=== PATIENT | female | born 1980 | race Caucasian/White ===

== ENCOUNTER 2021-02-17 08:54 | Outpatient (CLI) | payer OTHER, SELFPAY ==
--- NOTE | 2021-02-17 09:00 | MM_ITS ---
WS: [id number] BILATERAL DIGITAL DIAGNOSTIC MAMMOGRAM MAMMOGRAPHY WITH CAD CLINICAL INFORMATION: N63.0 - Unspecified lump in unspecified breast TECHNIQUE: Bilateral CC, MLO, and ML views. FINDINGS: The breasts are composed of heterogeneous fibroglandular density, which can limit the detection of sm all underlying mass lesions. Palpable marker is bilateral breasts. Multiple ovoid lesions deep to the palpable markers suspicious for breast cyst. Ultrasound is pending. ULTRASOUND BREAST BILATERAL TECHNIQUE: Ultrasound bilateral breast focused area of concern. CLINICAL INFORMATION: N63.0 - Unspecified lump in unspecified breast COMPARISON: None. FINDINGS: Ultrasound bilateral breasts. Multiple bilateral breast cysts are seen bilaterally. Most of these are simple cysts with a benign appearance. A few with internal debris. Approximately 5 cysts right breas t and 2 cysts left breast. RIGHT: Right breast cystic lesion at the areola 3:00 position measuring 8.9 x 7.8 x 6.5 mm with internal derek ris. Additional hypoechoic lesion likely complex cyst at the 10:00 position near the areola measuring 4.4 x 5.2 x 3.9 mm Recommend 6 month follow-up of these 2 complex lesions.. LEFT: Lobulated complex cystic lesion with internal debris at the 10:00 position at the areola measuring 11 x 10 x 6 mm. Recommend 6 month follow-up. Largest cyst right breast measures 1.8 x 1.4 x 1.2 cm at the 8:00 position. Largest cyst left breast measures 2.3 x 2.3 x 1.2 cm at the 2:00 position. MM/[place] [id number] IMPRESSION: BI-RADS: 3-Probably Benign FOLLOW UP: 6 Month Follow-up RECOMMEND 6 MONTH FOLLOW-UP BILATERAL BREAST ULTRASOUND WITH ATTENTION TO THE Valarie WOOD DESCRIBED COMPLEX CYSTIC LESIONS.
--- NOTE | 2021-02-17 09:30 | US_ITS ---
WS: [id number] BILATERAL DIGITAL DIAGNOSTIC MAMMOGRAM MAMMOGRAPHY WITH CAD CLINICAL INFORMATION: N63.0 - Unspecified lump in unspecified breast TECHNIQUE: Bilateral CC, MLO, and ML views. FINDINGS: The breasts are composed of heterogeneous fibroglandular density, which can limit the detection of sm all underlying mass lesions. Palpable marker is bilateral breasts. Multiple ovoid lesions deep to the palpable markers suspicious for breast cyst. Ultrasound is pending. ULTRASOUND BREAST BILATERAL TECHNIQUE: Ultrasound bilateral breast focused area of concern. CLINICAL INFORMATION: N63.0 - Unspecified lump in unspecified breast COMPARISON: None. FINDINGS: Ultrasound bilateral breasts. Multiple bilateral breast cysts are seen bilaterally. Most of these are simple cysts with a benign appearance. A few with internal debris. Approximately 5 cysts right breas t and 2 cysts left breast. RIGHT: Right breast cystic lesion at the areola 3:00 position measuring 8.9 x 7.8 x 6.5 mm with internal derek ris. Additional hypoechoic lesion likely complex cyst at the 10:00 position near the areola measuring 4.4 x 5.2 x 3.9 mm Recommend 6 month follow-up of these 2 complex lesions.. LEFT: Lobulated complex cystic lesion with internal debris at the 10:00 position at the areola measuring 11 x 10 x 6 mm. Recommend 6 month follow-up. Largest cyst right breast measures 1.8 x 1.4 x 1.2 cm at the 8:00 position. Largest cyst left breast measures 2.3 x 2.3 x 1.2 cm at the 2:00 position. US/US breast BI limited* [id number] IMPRESSION: BI-RADS: 3-Probably Benign FOLLOW UP: 6 Month Follow-up RECOMMEND 6 MONTH FOLLOW-UP BILATERAL BREAST ULTRASOUND WITH ATTENTION TO THE A [place] DESCRIBED COMPLEX CYSTIC LESIONS.
== END 2021-02-17 08:55 | disposition home or self-care (01) ==
LOC: RADSHAW 08:56
PROVIDERS: PCP Nurse Practitioner Family; Visit Provider Nurse Practitioner Women's Health
DX: N63.15 Unspecified lump in the right breast, overlapping quadrants (principal); N63.22 Unspecified lump in the left breast, upper inner quadrant
CPT/HCPCS: 76642; 77066

== ENCOUNTER 2021-08-23 12:46 | Outpatient (CLI) | payer OTHER, SELFPAY ==
--- NOTE | 2021-08-23 12:45 | US_ITS ---
WS: [id number] ULTRASOUND BREAST BILATERAL TECHNIQUE: Ultrasound bilateral breast focused area of concern. CLINICAL INFORMATION: R92.8 - Other abnormal and inconclusive findings on diagn... COMPARISON: February 17, 2021 FINDINGS: Ultrasound bilateral breast. Again seen are multiple bilateral breast cysts most of which are simple or slightly complex cysts with a benign appearance. RIGHT BREAST: Previously described complex cystic right breast lesions are similar in appearance with internal debris. No suspicious lesions in the right breast. Largest cyst right breast measures 1.3 x 0.7 x 0.8 cm 3:00 position. LEFT BREAST: Multiple lobulated complex cysts with internal debris the largest at the 10:00 position measuring 1.1 x 0.8 x 0.5 CM similar to previous. Additional new hypoechoic complex cystic lesion at the 6:00 position just below the nipple measuring 0.7 x 0.6 x 0.8 cm Additional new hypoechoic complex lesion at the 6 clock position may represent a complex cyst versus semisolid lesion measuring 0.5 x 0.4 x 0.5 CM. US/US breast BI limited* [id number] IMPRESSION: Recommend 6 month follow-up left breast ultrasound with attention t o the two new complex 6:00 lesions described above. BI-RADS 3 probably benign FOLLOW UP: 6 month follow-up left breast ultrasound
== END 2021-08-23 12:47 | disposition home or self-care (01) ==
LOC: RAD 12:47
PROVIDERS: PCP Nurse Practitioner Family; Visit Provider Nurse Practitioner Women's Health
DX: R92.8 Other abnormal and inconclusive findings on diagnostic imaging of breast (principal); N63.25 Unspecified lump in the left breast, overlapping quadrants
CPT/HCPCS: 76642

== ENCOUNTER 2022-01-14 10:04 | Outpatient (CLI) | payer OTHER, SELFPAY ==
--- NOTE | 2022-01-14 10:13 | US_ITS ---
WS: [id number] ULTRASOUND BREAST LEFT TECHNIQUE: Ultrasound left breast focused area of concern. CLINICAL INFORMATION: N63.0 - Unspecified lump in unspecified breast COMPARISON: Ultrasound August 23, 2021 FINDINGS: Ultrasound LEFT breast in the area of concern 6:00 position areola. Underlying fibrocystic changes. D ominant simple cyst measures approximately 1.5 x 1.3 x 1.2 CM. No suspicious breast lesions. No lesio ns to target for biopsy. No visualized complex cystic breast lesions today. US/US breast LT limited* [id number] IMPRESSION: BI-RADS 2 benign FOLLOW UP: Recommend return to annual screening mammography.
== END 2022-01-14 10:05 | disposition home or self-care (01) ==
LOC: RAD 10:04
PROVIDERS: PCP Registered Nurse; Visit Provider Surgery
DX: N63.0 Unspecified lump in unspecified breast (principal)
CPT/HCPCS: 76642

== ENCOUNTER 2023-01-12 13:49 | Outpatient (CLI) | payer OTHER, SELFPAY ==
--- NOTE | 2023-01-12 14:04 | MM_ITS ---
WS: [id number] BILATERAL 3D TOMOSYNTHESIS DIGITAL DIAGNOSTIC MAMMOGRAPHY WITH CAD CLINICAL INFORMATION: N63.20 - Unspecified lump in the left breast, unspecified... HISTORY: Palpable lump LEFT breast COMPARISON: 2020 TECHNIQUE: Bilateral CC, MLO, and ML views. FINDINGS: The breasts are composed of heterogeneous fibroglandular density, which can limit the detection of sm all underlying mass lesions. Palpable marker LEFT breast. Dense parenchymal tissue deep to the palpab le marker. Ultrasound of this area is pending. Additional ovoid nodules bilaterally previously demonstrated to r epresent cysts. ULTRASOUND BREAST LEFT TECHNIQUE: Ultrasound left breast focused area of concern. CLINICAL INFORMATION: N63.20 - Unspecified lump in the left breast, unspecified... FINDINGS: Ultrasound LEFT breast 2:00 position 4 cm from the nipple demonstrates an incidental cyst with single septation. This measures 1.5 x 0.9 x 1.7 CM. Multiple additional simple and complex cysts with internal debris demonstrated at the 12:00 to 3:00 p ositions. Complex appearing cyst at the 1:00 position measuring 1.5 cm with through transmission. Add itional complex appearing cystic lesion at the 3:00 position measuring 6.5 mm 2 cm from the nipple. S ome of these are similar in appearance to the prior ultrasound August 23, 2021 MM/[place] [id number] IMPRESSION: BI-RADS: 2-Benign FOLLOW UP: 1 Year Follow-up Recommend return to annual screening mammography.
--- NOTE | 2023-01-12 14:30 | US_ITS ---
WS: [id number] BILATERAL 3D TOMOSYNTHESIS DIGITAL DIAGNOSTIC MAMMOGRAPHY WITH CAD CLINICAL INFORMATION: N63.20 - Unspecified lump in the left breast, unspecified... HISTORY: Palpable lump LEFT breast COMPARISON: 2020 TECHNIQUE: Bilateral CC, MLO, and ML views. FINDINGS: The breasts are composed of heterogeneous fibroglandular density, which can limit the detection of sm all underlying mass lesions. Palpable marker LEFT breast. Dense parenchymal tissue deep to the palpab le marker. Ultrasound of this area is pending. Additional ovoid nodules bilaterally previously demonstrated to r epresent cysts. ULTRASOUND BREAST LEFT TECHNIQUE: Ultrasound left breast focused area of concern. CLINICAL INFORMATION: N63.20 - Unspecified lump in the left breast, unspecified... FINDINGS: Ultrasound LEFT breast 2:00 position 4 cm from the nipple demonstrates an incidental cyst with single septation. This measures 1.5 x 0.9 x 1.7 CM. Multiple additional simple and complex cysts with internal debris demonstrated at the 12:00 to 3:00 p ositions. Complex appearing cyst at the 1:00 position measuring 1.5 cm with through transmission. Add itional complex appearing cystic lesion at the 3:00 position measuring 6.5 mm 2 cm from the nipple. S ome of these are similar in appearance to the prior ultrasound August 23, 2021 US/US breast LT limited* [id number] IMPRESSION: BI-RADS: 2-Benign FOLLOW UP: 1 Year Follow-up Recommend return to annual screening mammography.
== END 2023-01-12 13:50 | disposition home or self-care (01) ==
PROVIDERS: PCP Registered Nurse; Visit Provider Nurse Practitioner Women's Health
DX: N63.20 Unspecified lump in the left breast, unspecified quadrant (principal)
CPT/HCPCS: 76642; 77062; G0279

== ENCOUNTER 2024-01-17 15:10 | Outpatient (CLI) | payer OTHER, SELFPAY ==
--- NOTE | 2024-01-17 16:30 | MM_ITS ---
WS: [id number] BILATERAL 3D TOMOSYNTHESIS DIGITAL SCREENING MAMMOGRAPHY WITH CAD CLINICAL INFORMATION: Z12.31 - Encounter for screening mammogram for malignant ... HISTORY: Screening mammogram. No current complaints. COMPARISON: 2022 TECHNIQUE: Bilateral CC and MLO views. FINDINGS: The breasts are composed of nodular heterogeneous fibroglandular density tissue, which can limit the detection of small underlying mass lesions. No suspicious mass, asymmetry, calcifications, or archite ctural distortion. No evidence of malignancy. Similar-appearing ovoid nodules bilaterally previously demonstrated represent cysts. MM/[place] [id number] IMPRESSION: BI-RADS: 2-Benign FOLLOW UP: 1 Year Follow-up Recommend return to annual screening mammography.
== END 2024-01-17 15:11 | disposition home or self-care (01) ==
LOC: MOBLMAM 15:13
PROVIDERS: PCP Nurse Practitioner Women's Health; Visit Provider Nurse Practitioner Women's Health
DX: Z12.31 Encounter for screening mammogram for malignant neoplasm of breast (principal); R92.333 Mammographic heterogeneous density, bilateral breasts; N63.20 Unspecified lump in the left breast, unspecified quadrant; N63.10 Unspecified lump in the right breast, unspecified quadrant
CPT/HCPCS: 77063; 77067

== ENCOUNTER 2024-12-13 06:00 | Outpatient (CLI) | payer OTHER, SELFPAY | END 2024-12-13 06:01 | disposition home or self-care (01) | PROVIDERS: PCP Nurse Practitioner Women's Health; Visit Provider Nurse Practitioner Women's Health | DX: E89.40 Asymptomatic postprocedural ovarian failure (principal); R53.83 Other fatigue | CPT/HCPCS: 82306; 82607; 82670; 82728; 82746; 83540; 84439; 84443; 85025 ==

== ENCOUNTER 2025-01-17 09:50 | Outpatient (CLI) | payer OTHER, SELFPAY ==
--- NOTE | 2025-01-17 10:00 | MM_ITS ---
WS: [id number] SCREENING DIGITAL BREAST TOMOSYNTHESIS MAMMOGRAM WITH CAD HISTORY: Z12.31 - Encounter for screening mammogram for malignant ... COMPARISON: 01/17/2024, 01/12/2023, ultrasound 01/12/2023 Bilateral CC and MLO with tomosynthesis and synthetic mammography submitted. Computer aided detection analyzed. Breast composition: The breasts are heterogeneously dense, which may obscure small masses. Patient has bilateral breast masses which are partially obscured by adjacent fibroglandular tissue. Masses within the RIGHT breast are stable and noted to be cysts on prior studies. There are 2 masses within the LEFT breast which have increased in size since the prior exam therefore ultrasound evaluation is recommended. The largest mass measures 2.3 x 2.4 cm in the upper outer quadrant of the LEFT breast. There is an additional mass in the lateral LEFT breast near 3:00. MM/MM scr BI tomosynthesis [id number] IMPRESSION: BI-RADS: 0 - Incomplete: Need additional imaging evaluation FOLLOW UP: Need Additional Imaging Follow-up ultrasound LEFT breast masses which have increased in size since 2023. Ultrasound directed to the upper outer quadrant from 12-4 o'clock.
== END 2025-01-17 09:51 | disposition home or self-care (01) ==
PROVIDERS: PCP Nurse Practitioner Women's Health; Visit Provider Nurse Practitioner Women's Health
DX: Z12.31 Encounter for screening mammogram for malignant neoplasm of breast (principal); R92.333 Mammographic heterogeneous density, bilateral breasts; N64.89 Other specified disorders of breast; N63.21 Unspecified lump in the left breast, upper outer quadrant; N63.25 Unspecified lump in the left breast, overlapping quadrants
CPT/HCPCS: 77063; 77067; 82306; 82607; 82670; 82728; 82746; 83540; 84439; 84443; 85025

== ENCOUNTER 2025-01-28 13:16 | Outpatient (CLI) | payer OTHER, SELFPAY ==
--- NOTE | 2025-01-28 13:19 | US_ITS ---
WS: [id number] ULTRASOUND LEFT BREAST HISTORY: Increasing LEFT breast masses since 01/17/2024. COMPARISON: 01/17/2025, 01/12/2023 TECHNIQUE: 2-D and Doppler. Ultrasound directed to the LEFT breast from 12-4 o'clock. There are multiple masses seen on recent mammogram and somewhat increasing in size. There are multiple cystic and complex cystic masses in the upper outer quadrant. There is through transmission. One of the largest masses at 3:00 measures 1.6 x 1.2 x 0.9 cm. Mass at 1:00, 4 cm from the nipple is probably a complex cyst or fibroadenoma measuring 0.9 x 1.1 x 0.7 cm. Similar to the prior study from 01/12/2023. US/US breast LT limited* [id number] IMPRESSION: BI-RADS: 2- Benign FOLLOW-UP: 1 Year Follow-up Multiple masses upper-outer quadrant LEFT breast are stable as compared to [facility] prior studies. One of the cyst has increased in size. Solid mass at 1:00 is stable.
== END 2025-01-28 13:17 | disposition home or self-care (01) ==
PROVIDERS: PCP Nurse Practitioner Women's Health; Visit Provider Nurse Practitioner Women's Health
DX: R92.8 Other abnormal and inconclusive findings on diagnostic imaging of breast (principal); N63.21 Unspecified lump in the left breast, upper outer quadrant; N60.12 Diffuse cystic mastopathy of left breast
CPT/HCPCS: 76642